=== PATIENT | female | born 1955 | race Caucasian/White ===

== ENCOUNTER → 2016-07-20 | Outpatient (CLI) | payer BC ==
[~2016-07-20] MED LIST: IBUPROFEN200 M1 PO; KEFLEX500 M2 PO; LISINOPRIL-HCTZ1 T15 PO; MELOXICAM15 MG PO; NORCO1 TAB 10/3 PO; PRAVASTATIN SOD80 MG PO; VITAMIN D1000 UNIT PO
--- NOTE | ~2016-07-20 | CT57 ---
[facility] A Service of [facility] RADIOLOGY TEXT RESULTS PATIENT: MAYKEL JACOB LOCATION: [facility] : 57 UNIT #: [id number] AGE: [address]: HERB ROBERTS MD (INT MED) SEX: F ORDER DR: [id number] [address] [address] [id number] O MR#: [id number] Acc #: [id number] NAME: MAYKEL JACOB : 1955 SEX: F STUDY DATE/TIME: 07/20/2016 13:26 UNIT: [facility] ROOM: STUDY DESCRIPTION: CT Chest Wo Cont Attending Physician: Herb Roberts M.D. Referring Physician: Herb Roberts M.D. Ordering Physician: Herb Roberts M.D. Primary Care Physician: Herb Roberts M.D. MEDICAL IMAGING REPORT This report is preliminary unless electronic signature is present. EXAM CT of the chest without contrast INDICATIONS 61-year-old female with followup of a pulmonary nodule. TECHNIQUE CT scan of the chest was performed without contrast. Coronal and sagittal reformatted images were obtained. This CT exam was performed with one or more of the following radiation dose reduction techniques: automatic control, adjustment of mA and/or kV according to patient size, and iterative reconstruction. COMPARISON Made with 12/30/2015 FINDINGS There is some minimal emphysematous changes. There are some patchy ground-glass densities in the lower lobes. These are stable. This may represent areas of air trapping. There is an 8 mm pulmonary nodule in the right lower lobe which is unchanged in size and appearance. No new nodules. No suspicious lymphadenopathy. No pleural effusion. Limited imaging of the upper abdomen demonstrates a cholecystectomy and a stable gastric diverticulum. The bone windows are unremarkable. IMPRESSION Stable 8 mm pulmonary nodule. This was negative on recent PET scan and the non uptake on PET and stability is reassuring for a benign nodule. I would however recommend another followup scan to be performed in 6 months time to document continued stability. Dictated by... [facility] A Service of [facility] RADIOLOGY TEXT RESULTS PATIENT: MAYKEL JACOB LOCATION: [facility] : 57 UNIT #: [id number] AGE: [address]: HERB ROBERTS MD (INT MED) SEX: F ORDER DR: Florentin Gonzalez M.D. THIS IS AN ELECTRONICALLY VERIFIED REPORT Florentin Gonzalez M.D. at 07/21/2016 9:03 AM ARS/rnr TD: 07/20/2016 15:48 JOB #: [id number] MEDICAL IMAGING REPORT Page 1 of 1
== END | disposition home or self-care (01) ==
LOC: SCT 13:17
DX: R91.1 Solitary pulmonary nodule (principal)
CPT/HCPCS: 71250

== ENCOUNTER → 2016-11-03 | Outpatient (CLI) | payer BC ==
--- NOTE | ~2016-11-03 | MY11 ---
[facility] A Service of [facility] RADIOLOGY TEXT RESULTS PATIENT: MAYKEL JACOB LOCATION: [facility] : 57 UNIT #: [id number] AGE: [address]: HERB ROBERTS MD (INT MED) SEX: F ORDER DR: [id number] [address] [address] [id number] O MR#: [id number] Acc #: [id number] NAME: MAYKEL JACOB : 1955 SEX: F STUDY DATE/TIME: 11/03/2016 10:46 UNIT: [facility] ROOM: STUDY DESCRIPTION: MY Mammogram Screening Dig Gallo Attending Physician: Herb Roberts M.D. Referring Physician: Herb Roberts M.D. Ordering Physician: Herb Roberts M.D. Primary Care Physician: Herb Roberts M.D. MEDICAL IMAGING REPORT This report is preliminary unless electronic signature is present. EXAM Digital screening mammogram, 11/03/2016, [facility]. HISTORY 61-year-old woman. No risk elevation. Previous reduction mammoplasties 2011. Annual screen. COMPARISON Mammograms date to 02/10/2010 with most recent 11/02/2014. FINDINGS Digital imaging of each breast was completed utilizing a two-view examination of each breast in craniocaudal and mediolateral-oblique projections. Review and interpretation of digital mammograms include a second review in conjunction with FDA-approved CAD device. There is a normal parenchymal presentation bilaterally consistent with the patient's age. There are no breast masses imaged and no parenchymal asymmetry is visualized. There are no suspicious microcalcifications and I see no focal architectural disturbance. IMPRESSION Negative screening digital mammogram. One-year followup recommended. Patients over the age of 40 are entered into a reminder system with target due date for the next mammogram. A result letter will also be sent to the patient. BIRADS: 1 Negative ADDENDUM Breast parenchyma is fatty replaced. [facility] A Service of [facility] RADIOLOGY TEXT RESULTS PATIENT: MAYKEL JACOB LOCATION: [facility] #: [id number] : 57 UNIT #: [id number] AGE: [address]: HERB ROBERTS MD (INT MED) SEX: F ORDER DR: Dictated by... Ralph Zepeda M.D. THIS IS AN ELECTRONICALLY VERIFIED REPORT Ralph Zepeda M.D. at 11/03/2016 2:38 PM BREEZY/rigoberto TD: 11/03/2016 13:12 JOB #: [id number] MEDICAL IMAGING REPORT Page 1 of 1
== END | disposition home or self-care (01) ==
LOC: SMAM 10:13
DX: Z12.31 Encounter for screening mammogram for malignant neoplasm of breast (principal); Z98.890 Other specified postprocedural states
CPT/HCPCS: G0202